=== PATIENT | female | born 1960 | race Caucasian/White ===

== ENCOUNTER 2018-09-28 18:21 | Observation (INO) ==
--- NOTE | 2018-09-28 19:30 | ED ---
HPI General Chief Complaint: Chest Pain Stated Complaint: Chest Pain Time Seen by Provider: 09/28/18 19:21 Source: patient Mode of arrival: ambulatory Limitations: no limitations History of Present Illness HPI narrative: Patient is a 58-year-old female who just was seen in the emergency room for COPD patient as well as for chest pain, she left AGAINST MEDICAL ADVICE as she did not want to be admitted overnight to the chest pain unit. At that time, patient reports that she has been having chest pain for the past 4 days which is intermittent in nature. Patient reports that chest pain would wake her up from sleep and will go from her chest and radiated to her jaw. Symptoms last about 10 minutes at a time resolved on its own. Patient was seen in the emergency room, she had 2 sets of cardiac enzymes which were negative and left AGAINST MEDICAL ADVICE. Patient reports that she went home and began to have chest pain. Patient reports that chest pain was substernal in nature, reports that it felt like a pressure to her chest. Patient reports that she did feel diaphoretic and shortness of breath with the symptoms. Patient reports the symptoms last for about 45 minutes and has resolved on its own. Patient was concerned about her cardiac history as she does have history of hypertension, lupus, fibromyalgia, COPD, she now is willing to be admitted to the hospital for cardiac observation. Patient is currently chest pain-free at this time. Related Data Home Medications Medication Instructions Recorded Confirmed acetaminophen 650 mg PO Q6H PRN 09/28/18 09/28/18 ergocalciferol (vitamin D2) 50,000 unit PO QWEEK 09/28/18 09/28/18 [Vitamin D2] hydroxychloroquine 200 mg PO BID 09/28/18 09/28/18 propranolol 120 mg PO DAILY 09/28/18 09/28/18 Previous Rx's Medication Instructions Recorded albuterol sulfate 2 inh INHALATION Q6-8H PRN #18 g 09/28/18 amoxicillin-pot clavulanate 1 tab PO Q12H #14 tab 09/28/18 [Augmentin] prednisone 20 mg PO BID 5 Days #10 tab 09/28/18 Allergies Allergy/AdvReac Type Severity Reaction Status Date / Time erythromycin base Allergy Severe N/V Verified 09/28/18 18:46 Sulfa (Sulfonamide Allergy Unknown UNKNOWN Verified 09/28/18 18:46 Antibiotics) Review of Systems ROS: all other systems reviewed are negative [facility] History History Provided By: Patient Medical History Medical History COPD (chronic obstructive pulmonary disease) (Acute) Fibromyalgia (Acute) HTN (hypertension) with goal to be determined (Acute) Lupus (Acute) Raynaud disease (Acute) Surgical History Surgical History History of skin surgery (Acute) Hx of cholecystectomy (Acute) Social History Social History Substance History: No History of Abuse Second Hand Smoke Exposure: Yes Smoking Status: Current every day smoker Tobacco Type: Cigarettes Cigarettes Per Day: 13 How Often Do You Have a Drink Containing Alcohol: Monthly or less Recent Travel in [facility] within the Last 8 Weeks: No Recent Out of Country Travel within the Last 8 Weeks: No Exam Narrative Exam Narrative: GENERAL: NAD SKIN: Focused skin assessment warm/dry. HEAD: Atraumatic. Normocephalic. EYES: Pupils equal and round. No scleral icterus. No injection or drainage. ENT: No nasal bleeding or discharge. Mucous membranes pink and moist. NECK: Trachea midline. No JVD. CARDIOVASCULAR: Regular rate and rhythm. No murmur appreciated. RESPIRATORY: No accessory muscle use. Clear to auscultation. Breath sounds equal bilaterally. GASTROINTESTINAL: Abdomen soft, non-tender, nondistended. Hepatic and splenic margins not palpable. MUSCULOSKELETAL: No obvious deformities. No clubbing. No cyanosis. No edema. NEUROLOGICAL: Awake and alert. No obvious cranial nerve deficits. Motor grossly within normal limits. Normal speech. PSYCHIATRIC: Appropriate mood and affect; insight and judgment normal. Course Initial Documented Vital Signs Temperature 98.5 F 09/28/18 18:43 Pulse Rate 74 09/28/18 18:43 Respiratory Rate 16 09/28/18 18:43 Blood Pressure 143/88 H 09/28/18 18:43 Pulse Oximetry 96 09/28/18 18:43 Last Documented Vital Signs Temperature 98.5 F 09/28/18 18:43 Pulse Rate 74 09/28/18 18:43 Respiratory Rate 16 09/28/18 18:43 Blood Pressure 143/88 H 09/28/18 18:43 Pulse Oximetry 96 09/28/18 18:43 Medical Decision Making MDM Narrative Medical decision making narrative: During the course of the patients emergency department visit, the patients history, examination, and differential diagnosis were reviewed with the patient. The patient was placed on a child monitor with oximetry and frequent blood pressure monitoring. The patient had an IV access obtained and blood work sent for analysis. The patient was initially provided with aspirin on her recent ER visit, please refer to previous ER note and medication administration. Her EKG from [address]-T wave changes, there is no previous EKGs. Her EKG currently shows normal sinus rhythm at 60 bpm, there is some minimal ST segment depressions lateral leads. Plan to admit to the hospital to the chest pain unit for observation. case reviewed with Dr. Abdi who accepts pt to service Medical Screen Exam Complete: Yes Emergency Medical Condition: Yes Differential Diagnosis Differential Diagnosis: ACS, arrhythmia, unstable angina ECG Data EKG Prior to Arrival: Yes Attestation: I personally reviewed and interpreted this ECG as follows: Interpretation: EKG at 1911 shows normal sinus rhythm at 68 bpm, QT/QTc 378/396 , there is minimal ST segment depressions Discharge Plan Discharge Disposition Patient Disposition: ED Admit(ED Internal Use Only) Discharge Condition Condition: Stable Discharge Details Diagnosis: Chest pain Physicians Team ED Provider: Keara Fuchs Primary Care Provider: Primary Care Amanda Herndon Rxs /Orders / Referrals /Forms Prescriptions: No Action acetaminophen 325 mg Tablet 650 mg PO Q6H PRN (Reason: Pain) RF: 0 ergocalciferol (vitamin D2) [Vitamin D2] 50,000 unit Capsule 50,000 unit PO QWEEK RF: 0 hydroxychloroquine 200 mg Tablet 200 mg PO BID RF: 0 propranolol 120 mg Capsule,Extended Release 24hr 120 mg PO DAILY RF: 0 prednisone 20 mg tablet 20 mg PO BID 5 Days Qty: 10 RF: 0 albuterol sulfate 90 mcg/actuation HFA aerosol inhaler 2 inh INHALATION Q6-8H PRN (Reason: shortness of breath or wheezing) Qty: 18 RF: 0 amoxicillin-pot clavulanate [Augmentin] 875-125 mg tablet 1 tab PO Q12H Qty: 14 RF: 0 Discharge Instructions Patient Printed Instructions: Chest Pain (ED) Status ED Status: With Doctor
[2018-09-28] MEDS ORDERED: Acetaminophen 325 MG Tablet PO ONE (19:37)
[2018-09-28 21:00] LABS: Creatine Kinase 69 U/L (26-192)
--- NOTE | 2018-09-28 22:04 | ECG ---
Date Performed: 09/28/2018 Time Performed: 19:11:34 PTAGE: 58 years EKG: Sinus rhythm MINIMAL ST DEPRESSION BORDERLINE ECG PREVIOUS TRACING : 09/28/2018 12.11 Since the previous tracing, no significant change noted DOCTOR: Konstantin Valentine Interpretating Date/Time 09/28/2018 22:03:01
[2018-09-29] MEDS: Heparin - SQ 10,000 UNITS/ML Vial SQ SCH ×3 (00:16→18:47)
[2018-09-29] MEDS: Morphine Inj 4 MG/ML Vial IV.PUSH PRN ×3 (00:42→14:54)
[2018-09-29 01:08] LABS: Creatine Kinase 79 U/L (26-192)
[2018-09-29 05:31] LABS: Creatine Kinase 53 U/L (26-192)
[2018-09-29] MEDS: Aspirin 325 MG Tablet PO SCH (08:25)
--- NOTE | 2018-09-29 13:03 | P.HPIM ---
History of Present Illness Primary Care Physician: No Primary Care Physician History of Present Illness: 58-year-old female with a history of lupus, fibromyalgia, hypertension, COPD, chronic smoking who presents with a 3-day history of intermittent sharp chest pain radiating to bilateral jaws, left arm. She notes that this pain usually wakes her from sleep, however has experiences during the day as well. She denies any fevers, chills. She also reports sinus congestion over the past few days. She is from [place] and is visiting family. He says her , who is still up in [place], was diagnosed with metastatic lung cancer the day before [place]. Patient says she has been very upset by this, has been grinding her teeth. She is not sure if her chest pain is stress related or not. Patient is currently chest pain-free. She reports that the pain is not worsened with deep breathing. Of note, she did visit the ER several days ago, was admitted to chest pain center with 2- troponins and discharged AMA. Review of Systems All other systems reviewed negative except as stated in HPI PMFSH - History History Provided By: Patient - Medical History Medical History: Medical History (Last Reviewed 09/28/18 @ 20:24 by Alexa Vides RN) COPD (chronic obstructive pulmonary disease) Fibromyalgia HTN (hypertension) with goal to be determined Lupus Raynaud disease - Surgical History Surgical History: Surgical History (Last Reviewed 09/28/18 @ 20:24 by Alexa Vides RN) History of skin surgery Hx of cholecystectomy - Tobacco History Second Hand Smoke Exposure: Yes Tobacco Use In Past 30 Days: Yes Smoking Status: Current every day smoker Tobacco Type: Cigarettes Cigarettes Per Day: 13 - Alcohol History How Often Do You Have a Drink Containing Alcohol: Never - Substance Use History Substance History: No History of Abuse - Travel History Recent Travel in the [place] Within the Last 8 Weeks: No Recent Travel Out of the Country Within the Last 8 Weeks: No - Immunization History Tetanus Immunization: >5 Years Medications and Allergies Active Medications: Active Medications Acetaminophen (Tylenol) 500 mg PO Q4H PRN PRN Reason: HEADACHE Hydrocodone Bitart/Acetaminophen (Emmaus 7.5/325) 1 tab PO Q4H PRN PRN Reason: PAIN SCALE 1 TO 7 Aspirin (Aspirin) 325 mg PO DAILY [facility] Last Admin: 09/29/18 08:25 Dose: 325 mg Heparin Sodium (Porcine) (Heparin Inj) 5,000 units SQ Q8H [facility] Last Admin: 09/29/18 08:25 Dose: 5,000 units Morphine Sulfate (Morphine Inj) 2 mg IV.PUSH Q4H PRN PRN Reason: PAIN SCALE 8 TO 10 Last Admin: 09/29/18 10:11 Dose: 2 mg Nitroglycerin (Nitrostat Sl) 0.4 mg SL Q5M PRN PRN Reason: CHEST PAIN Ondansetron HCl (Zofran Inj) 4 mg IV.PUSH Q6H PRN PRN Reason: NAUSEA Last Admin: 09/29/18 00:42 Dose: 4 mg Sodium Chloride (Ns Flush) 2 ml IV.FLUSH BID [facility] Last Admin: 09/29/18 08:26 Dose: 2 ml Sodium Chloride (Ns Flush) 2 ml IV.FLUSH PRN PRN PRN Reason: FLUSH AFTER USING IV ACCESS Allergies Allergy/AdvReac Type Severity Reaction Status Date / Time erythromycin base Allergy Severe N/V Verified 09/28/18 18:46 Sulfa (Sulfonamide Allergy Unknown UNKNOWN Verified 09/28/18 18:46 Antibiotics) Home Medications Medication Instructions Recorded Confirmed Type acetaminophen 650 mg PO Q6H PRN 09/28/18 09/28/18 History alprazolam 0.5 mg PO DIRECTED PRN 09/28/18 09/28/18 History ergocalciferol (vitamin D2) 50,000 unit PO QWEEK 09/28/18 09/28/18 History [Vitamin D2] hydroxychloroquine 200 mg PO BID 09/28/18 09/28/18 History propranolol 120 mg PO DAILY 09/28/18 09/28/18 History Exam Vital signs: Vital Signs 09/28/18 18:43 09/28/18 20:18 09/28/18 20:33 Temperature 98.5 F Pulse Rate 74 64 Respiratory Rate 16 18 18 Blood Pressure 143/88 H 112/76 Pulse Oximetry 96 95 09/28/18 22:18 09/28/18 22:30 09/29/18 04:00 Temperature 98.1 F 95.0 F L 96.3 F L Pulse Rate 62 59 L 68 Respiratory Rate 18 20 20 Blood Pressure 142/90 H 153/81 H 112/77 Pulse Oximetry 95 97 97 09/29/18 08:00 09/29/18 10:32 09/29/18 10:53 Temperature 96.8 F L 96.5 F L Pulse Rate 59 L 57 L Respiratory Rate 16 16 20 Blood Pressure 109/72 127/76 Pulse Oximetry 96 96 Intake & Output 09/28/18 09/29/18 09/29/18 18:59 06:59 18:59 Intake Total 0 / 0 Balance 0 / 0 Weight 59.8 kg 61.3 kg Intake: Oral 0 / 0 Other: # Voids 3 Weight On Admission 61.1 kg Narrative: GENERAL: Patient sitting up in bed. Appears comfortable. Appears anxious however. Alert and oriented x3. SKIN: Warm and dry. Patient does have a erythematous rash on her face which she says is not unusual for her. HEAD: Atraumatic. Normocephalic. EYES: Pupils equal and round. No scleral icterus. No injection or drainage. ENT: No nasal bleeding or discharge. Mucous membranes pink and moist. NECK: Trachea midline. No JVD. No TMJ tenderness. CARDIOVASCULAR: Regular rate and rhythm. RESPIRATORY: No accessory muscle use. Clear to auscultation. Breath sounds equal bilaterally. GASTROINTESTINAL: Abdomen soft, non-tender, nondistended. Hepatic and splenic margins not palpable. MUSCULOSKELETAL: Extremities without clubbing, cyanosis, or edema. No obvious deformities. NEUROLOGICAL: Awake and alert. No obvious cranial nerve deficits. Motor grossly within normal limits. Five out of 5 muscle strength in the arms and legs. Normal speech. PSYCHIATRIC: Appropriate mood and affect; insight and judgment normal. Results - Labs Labs: Cardiac Enzymes 09/28/18 09/28/18 09/29/18 Range/Units 19:20 23:20 04:32 Total Creatine Kinase 69 79 53 (26-192) U/L Troponin I Less than 0.02 L Less than 0.02 L Less than 0.02 L (0.02-0.05) ng/mL Caprini VTE Risk Assessment Caprini VTE Risk Assessment: No/Low Risk (score <= 1) Caprini Risk Assessment Model: Point Value = 1 Point Value = 2 Point Value = 3 Point Value = 5 Age 41-60 Minor surgery BMI > 25 kg/m2 Swollen legs Varicose veins or History of unexplained or recurrent spontaneous Oral contraceptives or hormone replacement Sepsis (< 1 month) Serious lung disease, including pneumonia (< 1 month) Abnormal pulmonary function Acute myocardial infarction Congestive heart failure (< 1 month) History of inflammatory bowel disease Medical patient at bed rest Age 61-74 Arthroscopic surgery Major open surgery (> 45 min) Laparoscopic surgery (> 45 min) Malignancy Confined to bed (> 72 hours) Immobilizing plaster cast Central venous access Age >= 75 History of VTE Family history of VTE Factor V Leiden Prothrombin [id number] Lupus anticoagulant Anticardiolipin antibodies Elevated serum homocysteine Heparin-induced thrombocytopenia Other congenital or acquired thrombophilia Stroke (< 1 month) Elective arthroplasty Hip, pelvis, or leg fracture Acute spinal cord injury (< 1 month) Prophylaxis Regimen: Total Risk Factor Score Risk Level Prophylaxis Regimen 0-1 Low Early ambulation 2 Moderate Order ONE of the following: *Sequential Compression Device (SCD) *Heparin 5000 units SQ BID 3-4 Higher Order ONE of the following medications: *Heparin 5000 units SQ TID *Enoxaparin/Lovenox 40 mg SQ daily (WT < 150 kg, CrCl > 30 mL/min) *Enoxaparin/Lovenox 30 mg SQ daily (WT < 150 kg, CrCl > 10-29 mL/min) *Enoxaparin/Lovenox 30 mg SQ BID (WT < 150 kg, CrCl > 30 mL/min) AND/OR *Sequential Compression Device (SCD) 5 or more Highest Order ONE of the following medications: *Heparin 5000 units SQ TID (Preferred with Epidurals) *Enoxaparin/Lovenox 40 mg SQ daily (WT < 150 kg, CrCl > 30 mL/min) *Enoxaparin/Lovenox 30 mg SQ daily (WT < 150 kg, CrCl > 10-29 mL/min) *Enoxaparin/Lovenox 30 mg SQ BID (WT < 150 kg, CrCl > 30 mL/min) AND *Sequential Compression Device (SCD) Assessment and Plan - Plan //Acute atypical chest pain -EKG with some ST depression, likely left ventricular hypertrophy. Troponins negative. -Nonpleuritic -Could be stress-induced cardiomyopathy secondary to 's recent diagnosis of metastatic cancer. -Patient has been recently started on steroids for upper respiratory infection, could be exacerbating stress. -We will check echocardiogram, Lexiscan. Follow-up results. //Recent upper respiratory infection No signs of acute infection currently. //History of COPD Patient says she is without inhalers here currently. Will order as needed. //Chronic illnesses including lupus, Raynaud's. Continue medication Discussed Condition With: Patient, nurse H&P: Quality - VTE Deep Vein Thrombosis/Pulmonary Embolism Present on Admission: No
[2018-09-29] MEDS ORDERED: Regadenoson Inj 0.4 MG/5 ML Syringe IV.PUSH ONE (14:03)
--- NOTE | 2018-09-29 15:09 | NM ---
EXAM DATE: 09/29/2018 2:58 PM EST AGE/SEX: 58 years / Female INDICATIONS:Angina. . Chest pain radiating to left arm and jaw. CLINICAL DATA: This is the patient's initial encounter. Patient reports that signs and symptoms have been present for 1 day and indicates a pain score of 3/10. MEDICAL/SURGICAL HISTORY: Chronic obstructive pulmonary disease. Hypertension. Lupus. Fibrom yalgia. Cholecystectomy. COMPARISON: No prior exams available for comparison. DOSE: 8.8 mCi Tc 99m Myoview at rest 26.3 mCi [id number] at stress 0.4 mg Lexiscan STRESS SYMPTOMS: Chest tightness, dyspnea, and burning in chest. EJECTION FRACTION: 51 % TECHNIQUE: The patient underwent pharmacologic stress with infusion of prescribed dose. Continuous ECG tracing was monitored during stress. Gated SPECT imaging was performed after stress and conventi onal SPECT imaging was performed at rest. The examination was performed on a SPECT/CT scanner, both attenuation and non-corrected datasets were reviewed. FINDINGS: Distribution: The maximum perfused segment at stress is in the inferior wall. Perfusion Study: A large partially reversible stressed induced perfusion abnormality is identified throughout the left ventricle with sparing of the bases. There is incomplete reperfusion in the apex of the heart. Gated Study: Significant hypokinesia is identified associated with the large perfusion abnormality. The ejection fraction is calculated at 51% but appears to be overestimated. RISK CATEGORY: High (>3% Annual Mortality Rate) CONCLUSION: 1. Large partially reversible stress-induced perfusion abnormality with associated significant hypok inesia. 2. Over calculated ejection fraction which appears to be less than 50%. Electronically signed by: Erwin Mazariegos MD Board Certified Radiologist 09/29/2018 3:07 PM EST
[2018-09-29] MEDS ORDERED: Heparin Drip 25,000 UNIT/250 ML BAG IV.CONT PRN (16:52)
[2018-09-29] MEDS ORDERED: fentaNYL Citrate Inj 100 MCG/2 ML Ampul IV.PUSH SCH (17:00)
--- NOTE | 2018-09-29 17:10 | MB ---
cc: Antonio Wynn MD DATE: 09/29/2018 REASON FOR CONSULTATION: Abnormal nuclear stress test, chest pain. HISTORY OF PRESENT ILLNESS: The patient is a 58-year-old white female, visiting here from [place], with a history of hypertension, hyperlipidemia, tobacco abuse, COPD, fibromyalgia, lupus, who presented to the hospital with complaints of chest discomfort and shortness of breath. For the past 6 days, she has had intermittent episodes of right parasternal and substernal chest discomfort described as a "raw feeling." Some episodes have lasted up to 30-40 minutes and had been associated with shortness of breath and nausea. The patient denies pleurisy, dizziness, syncope, near syncope, palpitations, pedal edema, paroxysmal nocturnal dyspnea. PAST MEDICAL HISTORY: 1. COPD. 2. Fibromyalgia. 3. Hyperlipidemia. 4. Hypertension. 5. Lupus. PAST SURGICAL HISTORY: 1. Skin surgery. 2. Cholecystectomy. CARDIAC MEDICATIONS AT HOME: Propranolol 120 mg daily. ALLERGIES: ERYTHROMYCIN, SULFA. FAMILY HISTORY: The patient's brother has sustained a number of myocardial infarctions in his 40s and underwent bypass surgery at approximately age 42. SOCIAL HISTORY: The patient smokes about 10 cigarettes per day. She denies alcohol abuse. REVIEW OF SYSTEMS: As in the history of present illness, otherwise negative or noncontributory. She also denies abdominal pain, melena, dyspepsia, bright red blood per rectum. Chronically, she has mild headaches for which she uses Tylenol with relief. PHYSICAL EXAMINATION: VITAL SIGNS: Her blood pressure is 115/80 with a pulse of 74, respirations 18. GENERAL: She is a well-developed, well-nourished white female in no acute distress. NECK: Jugular venous pressure is normal. Carotid pulses are 2+ bilaterally and without bruits. CHEST: Reveals clear lungs flynn. CARDIAC: She has a regular rhythm and rate without S3, S4, or murmur. ABDOMEN: She has a soft, nontender abdomen. Bowel sounds are present. There is no definite hepatosplenomegaly. EXTREMITIES: Reveals no clubbing, cyanosis or edema. LABORATORY DATA: Includes normal CBC, normal INR, normal basic metabolic profile, negative cardiac enzymes. EKG shows sinus rhythm, anterior T-wave inversion, consider ischemia. IMPRESSION: Symptoms most suggestive of unstable angina, abnormal nuclear stress test reportedly showing significant ischemia in this 58-year-old white female with a history of COPD, hypertension, hyperlipidemia, lupus. Her nuclear stress test images have been reviewed. I would agree there is a significant amount of moderate to severe mid to distal anterior and apical ischemia. She also has an EKG suggesting anterior ischemia with T-wave inversion in the anterior leads. She does have a number of risk factors for coronary artery disease including family history, tobacco abuse, hypertension, hyperlipidemia. Because of the high risk nature of her nuclear stress test findings and because of the instability of her symptoms, she has been recommended cardiac catheterization with possible percutaneous coronary intervention. The nature of these procedures and potential risks including, but not limited to , myocardial infarction, stroke, arrhythmia, bleeding, infection, and renal failure have been outlined to the patient. She agrees to proceed. RECOMMENDATIONS: 1. Continue daily aspirin and her usual beta bryce. 2. Transfer to the main hospital for cardiac catheterization tomorrow morning. 3. Add an CAYLA inhibitor and statin. 4. Change the subcutaneous heparin to heparin drip. MD SABRINA Collins/fer , 04:48 PM , 04:55 PM [email or web address]
[2018-09-29 18:52] LABS: Amphetamine Screen,Urine Neg (Neg); Barbiturate Screen,Urine Neg (Neg); Cannabinoid Screen,Urine Neg (Neg)
[2018-09-29 18:53] LABS: Cocaine Screen,Urine Neg (Neg)
[2018-09-29 19:04] LABS: Hematocrit 43.9 % (35.0-46.0); Hemoglobin 14.9 gm/dL (11.6-15.3); Mean Corpuscular Hemoglobin 30.6 pg (27.0-34.0); Mean Platelet Volume 8.6 fL (7.0-11.0); Platelet Count 217 th/mm3 (150-450); Red Blood Count 4.88 mil/mm3 (4.00-5.30); White Blood Count 10.1 th/mm3 (4.0-11.0)
[2018-09-29 19:15] LABS: Opiate Screen,Urine Pos (Neg)
--- NOTE | 2018-09-29 23:03 | ECG ---
Date Performed: 09/29/2018 Time Performed: 15:01:41 PTAGE: 58 years EKG: Sinus rhythm MODERATE T-WAVE ABNORMALITY, CONSIDER ANTERIOR ISCHEMIA ABNORMAL ECG PREVIOUS TRACING : 09/29/2018 02.15 Compared to previous tracing, anterior T wave inversion is now more prominent. DOCTOR: Antonio Wynn Interpretating Date/Time 09/29/2018 23:02:38
[2018-09-29] MEDS ORDERED: ALPRAZolam 0.25 MG Tablet PO ONE (23:10)
--- NOTE | 2018-09-29 23:37 | ECG ---
Date Performed: 09/28/2018 Time Performed: 23:34:26 PTAGE: 58 years EKG: Sinus rhythm NONSPECIFIC ST-T ABNORMALITIES PREVIOUS TRACING : 09/28/2018 19.11 Since the previous tracing, no significant change not ed DOCTOR: Konstantin Valentine Interpretating Date/Time 09/29/2018 23:35:07
--- NOTE | 2018-09-29 23:37 | ECG ---
Date Performed: 09/29/2018 Time Performed: 02:15:44 PTAGE: 58 years EKG: Sinus rhythm MODERATE ST DEPRESSION ABNORMAL ECG PREVIOUS TRACING : 09/28/2018 23.34 Since the previous tracing, no significant change noted DOCTOR: Konstantin Valentine Interpretating Date/Time 09/29/2018 23:34:33
[2018-09-30] MEDS ORDERED: Sod Chloride 0.9% Inj 1,000 ML IV.CONT SCH (02:30)
[2018-09-30] MEDS ORDERED: Heparin/NS PF Inj 1,500 ML ONE (07:11)
[2018-09-30] MEDS ORDERED: Heparin 10,000 UNITS/10 ML Vial (for IV use) ONE (07:12)
[2018-09-30] MEDS ORDERED: fentaNYL Citrate Inj 100 MCG/2 ML Ampul ONE (07:12)
[2018-09-30] MEDS ORDERED: Tirofiban Inj 12,500 MCG/250 ML PLAST..BAG ONE (07:28)
[2018-09-30] MEDS ORDERED: Iohexol 350 MG/ML 100 ML Vial (for Cath Lab) IVCONTRAST ONE (07:30)
[2018-09-30] MEDS ORDERED: Iohexol 350 MG/ML 50 ML Vial (for Cath Lab) IVCONTRAST ONE (07:30)
[2018-09-30] MEDS ORDERED: Misc Info for Pharmacy OTHER STA (07:58)
--- NOTE | 2018-09-30 07:59 | CATHPROC ---
[employer] HIS Report Study Information Study Number Admission Scheduled Start Study Start [id number] Sep 28 2018 7:50PM 09/30/2018 Sep 30 2018 6:54AM Martha Service Cardiac Catheterization Admit Source Facility Department Emergency department [facility] - [facility] [employer] Physician and Clinical Staff Initial Antonio Babin Civil Manager Ross Mittal,RN Recorder Diana Miller ,RT(R) Scrub Val Allen,RT(R) Procedures Performed Procedure Location (Site) Vessel Name Coronary Angiograms LCA Left Coronary Coronary Angiograms RCA Right Coronary Drug Eluting Inflatio LAD Mid Left Coronary L Heart Cath LV Gram-hand inj. 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 Description Size Mfg Part Number Used/Scraped [id number] 07:34 [employer] WIRE, ASAHI PROWATER 180CM 180CM Used *[id number] TRANSDUCER, TRUWAVE [id number] 06:59 PATEL HOWELL * Used W/STOCKCOCK *[id number] *[id number] 06:59 MALLINCKRODT SYRINGE, ANGIOMAT 150ML 150ML *[id number] Used 2SUB MEDICAL CONCEPT DRAPE, RADIAL FEMORAL FULL 06:59 * [id number] *[id number] Used DEVELOPMENT BODY [id number] 06:59 [employer] BLANKET,WARM AIR CCL * Used *[id number] 06:59 [employer] PACK, CCL CUSTOM * Used *[id number] 06:59 [employer] SUPPORT, ARTERIAL ADULT [id number] *[id number] Used [id number] 06:59 [employer] PACER PEN, SKIN DUAL W/ RULER * Used *[id number] 07:38 [employer] BALLOON, 2.5 X 15MM EUPHORA 15MM Used *[id number] 07:42 [employer] STENT, 2.75 18MM HUMERA 2.75 18MM Used *[id number] 07:35 [employer] 30 JUAN MANUEL INDEFLATOR Used *[id number] BAND, RADIAL COMPRESSION TR [id number] 07:49 [employer] 24CM Used SHORT 24 *[id number] SHEATH, FR6 RADIAL PRELUDE 06:59 [employer] FR 6 [id number] Used EASE 11CM [id number] 06:59 [employer] WIRE, EXCHANGE 260CM 3MMJ 260CM Used *[id number] 06:59 [employer]IC MANIFOLD, 4 PORT * Used *[id number] 06:59 [employer] OMNIPAQUE, 350 MG, 150ML 150ML [id number] Used CATHETER, FR5 OPTITORQUE [id number] 07:27 [employer] FR 5 Used RADIAL TIG 4.5 *[id number] Equipment Model, Serial, Lot Number and Expiration Data Description Model Number Serial Number Lot Number Expiration Date STENT, 2.75 18MM HUMERA [id number] 10-30-2019 History: Current Medications Medication Dosage/Unit Route Frequency Last Date/Time Taken Statins (any) ASA History: Allergies Allergy Reaction Sulfa (Sulfonamide Antibiotics) UNKNOWN erythromycin base N/V History: Risk Factors Family History of Hypertension Dyslipidemia Previous SC Previous Heart Failure Premature CAD Yes Yes Yes No No Prior Valve Prior PCI Prior CABG Surgery No No No Cerebrovascular Peripheral Artery Chronic Lung On Dialysis Diabetes Disease Disease Disease No No No Yes No History: Stress Tests Stress or Imaging Studies Performed Yes Standard Exercise Stress Test No Stress Echo No Stress Test CMR No Cardiac CTA Coronary Calcium Score No No History: Other Current Smoker Method Packs a Day Years Used Pack Years Yes Cigarettes 1 42 42 Labs Hgb (g/dl) Hct (%) WBC (l/cumm) Platelets (thousands) 11.60-17.00 35.00-51.00 4.00-11.00 150.00-450.00 14.9 43.9 10.1 217 Glucose (mg/dl) BUN (mg/dl) Creatinine (mg/dl) BUN:Creatinine (1:x) 74.00-106.00 7.00-18.00 0.50-1.30 10.00-20.00 99 12 0.5 24 Na (meq/l) K (meq/l) 136.00-145.00 3.50-5.10 135 3.9 Troponin I (ng/ml) CPK-MB (ng/ML) 0.02-0.05 0.50-3.60 0.02 Not Drawn Medication Medication Total Dose (Bolus/Oral) Medication Total Dosage/Unit 1% XYLOCAINE 5 mL AGGRASTAT BOLUS 31.5 mL FENTANYL 50 mcg NTG (IC) 250 mcg PLAVIX 600 mg VERSED 4 mg Medications (Bolus/Oral) Medication Time Given Dosage/Unit Administered By Reason 1% XYLOCAINE 09/30/2018 7:24:02 AM 5 mL Antonio Wynn 5 mL 1% XYLOCAINE given in lab by Antonio Wynn via Subcutaneous. Ordered by Antonio Wynn. VERSED 09/30/2018 7:24:15 AM 2 mg Daxa, Ross 2 mg VERSED given in lab by Ross Mittal RN via Peripheral IV. Ordered by Antonio Wynn. FENTANYL 09/30/2018 7:25:20 AM 50 mcg Daxa, Ross 50 mcg FENTANYL given in lab by Ross Mittal RN via Peripheral IV. Ordered by Antonio Wynn. AGGRASTAT BOLUS 09/30/2018 7:34:24 AM 31.5 mL Daxa, Ross 31.5 mL AGGRASTAT BOLUS given in lab by Ross Mittal RN via Peripheral IV. Ordered by Antonio Wynn. VERSED 09/30/2018 7:40:16 AM 2 mg Daxa, Ross 2 mg VERSED given in lab by Ross Mittal RN via Peripheral IV. Ordered by Antonio Wynn. NTG (IC) 09/30/2018 7:41:21 AM 150 mcg Antonio Wynn 150 mcg NTG (IC) given in lab by Antonio Wynn via Intra-coronary. Ordered by Antonio Wynn. NTG (IC) 09/30/2018 7:45:13 AM 100 mcg Antonio Wynn 100 mcg NTG (IC) given in lab by Antonio Wynn via Intra-coronary. Ordered by Antonio Wynn. PLAVIX 09/30/2018 7:54:40 AM 600 mg Daxa, Ross 600 mg PLAVIX given in lab by Ross Mittal RN via Oral. Ordered by Antonio Wynn. Medication (Drip) Medication Time Given Dosage/Unit Concentration/Unit Diluent (ml) Solution AGGRASTAT DRIP 09/30/2018 7:37:03 AM 0.15 mcg/kg/min 12.5 mg 250 NaCl .9 0.15 mcg/kg/min AGGRASTAT DRIP given in lab by Ross Mittal RN via Peripheral IV. Pump/Drip Flow = 1 1.3 ml/hr using NaCl .9 with a concentration of 12.5 mg in 250 ml. Ordered by Antonio Wynn. IV Solutions 09/30/2018 6:57:47 AM 50 mL (IV) NaCl .9 Patient arrived on IV Solutions via Peripheral IV. Pump/Drip Flow using NaCl .9. Initial Case Assessment Cardiovascular HR NIBP Chest Pain 64 138/86 1 Edema Present Skin color Skin None Normal Warm Dry Circulatory - Right Pulses Dorsalis Pedis Femoral Radial 3 3 3 Scale (0,1,2,3,4,d) Scale (0,1,2,3,4,d) Circulatory - Lower Extremities Color Lower Right Color Lower Left Normal Normal Neurological State Oriented to time-place- Alert Moves all extremities person Respiration - General Respiration Rate SpO2 (%) (B/min) 15 96 Final Case Assessment Cardiovascular HR NIBP Chest Pain 64 128/81 1 Edema Present Skin color Skin None Normal Warm Dry Circulatory - Right Pulses Dorsalis Pedis Femoral Radial 3 3 3 Scale (0,1,2,3,4,d) Scale (0,1,2,3,4,d) Circulatory - Lower Extremities Color Lower Right Color Lower Left Normal Normal Neurological State Oriented to time-place- Alert Moves all extremities person Respiration - General Respiration Rate SpO2 (%) (B/min) 15 96 Chronological Log Time Study Chronological Log 6:57:23 Patient arrived via Bed. 6:57:25 Patient Name, D.O.B, / Armband Verified By R.N. 6:57:25 Consent signed by the physician and the patient and verified by the [employer] [employer] staff. 6:57:26 Pre-op and post- op instructions given; patient acknowledges understanding of instructions. 6:57:31 Presedation assessment performed by [employer] RN. 6:57:34 Allens test performed on the right radial and ulnar artery. positive 6:57:36 Patient has been NPO for More than 6Hrs. 6:57:37 Skin Breakdown- none per patient 6:57:40 Patient Warmer Placed on the Table. 6:57:43 Yvette Prominences Protected 6:57:46 A # 20 IV was noted in the Antecubital (right). Grade = 0 6:57:47 Patient arrived on IV Solutions via Peripheral IV. Pump/Drip Flow using NaCl .9. 6:57:48 History and physical on the chart or being dictated. Assessment: Initial Case, HR=64 BPM, WLCA=781/86 mmhg, Chest Pain=1, Edema=None, Color=Normal, Skin = Warm, Dry Right Pulses: Nav Ped=3, Femoral=3, Radial=3 6:58:04 Lower Right Extremities: Color=Normal Lower Left Extremities: Color=Normal Neurological: State=Alert, Ox3, CARDONA Respiration: Resp=15 B/min, SpO2=96 % Vitals capture started with the following parameters, Patient=Adult, Interval=5 min, Initial Pre otadt=157 mmHg, 7:09:14 Deflation Rate=5 mmHg, Cuff placed on Right Arm 7:09:51 HR=63 bpm, XZME=718/86 mmhg, SpO2=96.0 %, Resp=11 B/min, Pain=0, Arianna=10, Hale=2 7:12:38 Right Radial and groin(s) prepped with 2% chlorhexidine, and draped after a 3 min. waiting t maria. 7:14:54 HR=74 bpm, GDVW=543/68 mmhg, SpO2=95.0 %, Resp=16 B/min 7:18:14 Pressure channel 1 zeroed. 7:18:26 MD paged 7:18:38 MD responded 7:19:07 Reference ECG taken 7:20:19 MD arrived. 7:20:24 HR=68 bpm, WSFK=526/89 mmhg, SpO2=93.0 %, Resp=16 B/min Time Out. Correct patient, correct procedure, correct physician, labs, allergies, and equipment verified with garage laborer 7:23:27 team present. Fire risk assesment completed (see hard stop sheet for coding). Time Out Concu rred by MD and individual staff in procedure. 7:24:01 Case Start 7:24:02 5 mL 1% XYLOCAINE given in lab by Antonio Wynn via Subcutaneous. Ordered by Antonio Wynn. 7:24:15 2 mg VERSED given in lab by Ross Mittal, RN via Peripheral IV. Ordered by Antonio Wynn. 7:25:20 50 mcg FENTANYL given in lab by Ross Mittal, RN via Peripheral IV. Ordered by Antonio Wynn. 7:25:31 HR=71 bpm, OSRO=545/88 mmhg, SpO2=96.0 %, Resp=13 B/min, Pain=0, Arianna=10, Hale=2 7:25:36 Access site was Right Radial Artery . A SHEATH, FR6 RADIAL PRELUDE EASE 11CM FR 6 was advanced into the Radial (right) using the Grady chavira 7:25:45 technique. A CATHETER, FR5 OPTITORQUE RADIAL TIG 4.5 FR 5 was advanced over a wire. OMNIPAQUE, 350 MG, 150M L 150ML 7:26:08 was used for injections. 7:27:39 The LCA was injected and visualized at various angles. OMNIPAQUE, 350 MG, 150ML 150ML used. 7:28:58 The RCA was injected and visualized at various angles. OMNIPAQUE, 350 MG, 150ML 150ML used. Recorded Pressure: Ao, BR=440, Condition=Condition 1 7:29:15 (Aorta) Ao 105/71/87 7:29:51 HR=46 bpm, NYLD=529/73 mmhg, SpO2=87.0 %, Resp=10 B/min After removing the current catheter a CATHETER, FR5 OPTITORQUE RADIAL TIG 4.5 FR 5 was advanced over a WIRE, 7:30:01 EXCHANGE 260CM 3MMJ 260CM. Recorded Pressure: LV, HR=95, Condition=Condition 1 7:30:30 (Left Ventricle) LV 113/-2/3 7:30:36 The LV was manually injected with 10 cc's and visualized. OMNIPAQUE, 350 MG, 150ML 150ML use d. Recorded Pressure: LV, Ao, HR=89, Condition=Condition 1 7:30:45 (Left Ventricle) LV 121/-2/0, (Aorta) Ao 117/69/90 After removing the current catheter a XB 3.5 GUIDE CATHETER FR 6 was advanced over a WIRE, EXCHA NGE 260CM 7:32:13 3MMJ 260CM. 7:32:54 Activated Clotting Time Drawn 7:34:24 31.5 mL AGGRASTAT BOLUS given in lab by Ross Mittal RN via Peripheral IV. Ordered by Antonio Wynn. 7:34:48 HR=82 bpm, HAFN=450/73 mmhg, SpO2=89.0 %, Resp=13 B/min, Pain=0, Arianna=10, Hale=2 7:35:05 A WIRE, ASAHI PROWATER 180CM 180CM was inserted via Fem Art (right). 0.15 mcg/kg/min AGGRASTAT DRIP given in lab by Ross Mittal RN via Peripheral IV. Pump/Drip [place] w = 11.3 ml/hr 7:37:03 using NaCl .9 with a concentration of 12.5 mg in 250 ml. Ordered by Antonio Wynn. 7:37:34 Interventional wire has crossed the lesion 7:37:56 ACT (Normal Range 90-180) = 269 A BALLOON, 2.5 X 15MM EUPHORA 15MM was inserted over WIRE, ASAHI PROWATER 180CM 180CM via the R adial 7:38:05 (right). A BALLOON, 2.5 X 15MM EUPHORA 15MM over a WIRE, ASAHI PROWATER 180CM 180CM in the LAD Mid was i nflated 7:38:42 using a 30 JUAN MANUEL INDEFLATOR at 8 juan manuel for 20 sec. 7:40:16 2 mg VERSED given in lab by Ross Mittal RN via Peripheral IV. Ordered by Antonio Wynn. 7:40:18 HR=94 bpm, CFTB=851/97 mmhg, SpO2=94.0 %, Resp=12 B/min, Pain=0, Arianna=10, Hale=2 A BALLOON, 2.5 X 15MM EUPHORA 15MM over a WIRE, ASAHI PROWATER 180CM 180CM in the LAD Mid was i nflated 7:40:22 using a 30 JUAN MANUEL INDEFLATOR at 10 juan manuel for 12 sec. 7:41:21 150 mcg NTG (IC) given in lab by Antonio Wynn via Intra-coronary. Ordered by Antonio Wynn. 7:42:18 Balloon Removed. A STENT, 2.75 18MM HUMERA 2.75 18MM was advanced through a XB 3.5 GUIDE CATHETER FR 6 over a WIRE , ASAHI 7:42:21 PROWATER 180CM 180CM. A STENT, 2.75 18MM HUMERA 2.75 18MM was deployed using a 30 JUAN MANUEL INDEFLATOR at 15 atmospheres for 30 seconds 7:43:30 in the LAD Mid. 7:44:54 HR=85 bpm, BJGW=577/81 mmhg, SpO2=94.0 %, Resp=8 B/min 7:45:11 Delivery device removed 7:45:13 100 mcg NTG (IC) given in lab by Antonio Wynn via Intra-coronary. Ordered by Antonio Wynn. 7:46:19 Wire removed 7:46:21 Catheter was removed 7:46:42 Case End (Physician broke scrub) Assessment: Final Case, HR=64 BPM, OJJI=864/81 mmhg, Chest Pain=1, Edema=None, Color=Normal, Sk in = Warm, Dry Right Pulses: Nav Ped=3, Femoral=3, Radial=3 7:48:35 Lower Right Extremities: Color=Normal Lower Left Extremities: Color=Normal Neurological: State=Alert, Ox3, CARDONA Respiration: Resp=15 B/min, SpO2=96 % 7:49:03 Catheter(s) removed without difficulty Radial Compression Device Used. 11 mLs of air placed in BAND, RADIAL COMPRESSION TR SHORT 24 24 CM. Affected 7:49:04 hand 94 % O2 saturation. 7:49:17 No case complications noted. 7:49:18 Cine recording checked. 7:49:19 Bedside Report will be given. 7:49:20 Implantable Device card placed in patient's chart. 7:49:23 A Left Heart Cath was performed. 7:49:49 HR=81 bpm, MWOF=328/81 mmhg, Resp=9 B/min 7:54:40 600 mg PLAVIX given in lab by Ross Mittal, RN via Oral. Ordered by Antonio Wynn. 7:54:46 HR=80 bpm, CQBI=830/75 mmhg, Resp=10 B/min 7:58:23 Patient moved to [facility] End Study - Contrast Media Used In Study Contrast Total Opened (mL) Total Used (mL) Total Wasted (mL) Omnipaque 135 135 0 End Study - Maximum Contrast Load Max Contrast Load (mL) 629.1 End Study - Radiation Exposure Fluoro Time Fluoro Dose (mGy) Cine Dose (uGym2) (minutes) 5.6 349 4 End Study - Sheaths Sheaths Pulled By Sheath Hold Time (min) Val Allen End Study - Patient Disposition Complications Transferred To Interventional Outcome No Telemetry Bed successful
[2018-09-30] MEDS ORDERED: Tirofiban Inj 12,500 MCG/250 ML PLAST..BAG IV.CONT SCH (08:00)
--- NOTE | 2018-09-30 08:05 | P.PNCA ---
Subjective Interval history: No further CP. No dyspnea, dizziness, palpitations. Medications and Allergies Active Medications: Active Medications Acetaminophen (Tylenol) 500 mg PO Q4H PRN PRN Reason: HEADACHE Hydrocodone Bitart/Acetaminophen (Concan 7.5/325) 1 tab PO Q4H PRN PRN Reason: PAIN SCALE 1 TO 7 Albuterol (Ventolin Hfa Inh) 2 puff INH Q4H PRN PRN Reason: SHORTNESS OF BREATH/WHEEZING Aspirin (Aspirin) 325 mg PO DAILY [facility] Last Admin: 09/29/18 08:25 Dose: 325 mg Atorvastatin Calcium (Lipitor) 40 mg PO HS [facility] Last Admin: 09/29/18 21:49 Dose: 40 mg Clopidogrel Bisulfate (Plavix) 75 mg PO DAILY [facility] Diphenhydramine HCl (Benadryl) 50 mg PO POINT OF SALE ASSOCIATE [facility] Stop: 10/03/18 16:59 Enalapril Maleate (Vasotec) 5 mg PO DAILY [facility] Fentanyl Citrate (Fentanyl Inj) 50 mcg IV.PUSH POINT OF SALE ASSOCIATE [facility] Stop: 10/03/18 16:59 Sodium Chloride (Ns Inj) 1,000 mls @ 100 mls/hr IV.CONT .Q10H [facility] Heparin Sodium/Dextrose (Heparin/D5w 25,000 U/250 Ml) 25,000 unit in 250 mls @ 0 mls/hr IV.CONT TITRATE PRN; Protocol PRN Reason: Per Protocol Last Admin: 09/29/18 18:41 Dose: 700 units/hr, 7 mls/hr Sodium Chloride (Ns Inj) 1,000 mls @ 100 mls/hr IV.CONT .Q10H [facility] Stop: 09/30/18 19:59 Tirofiban/Sodium Chloride (Aggrastat Inj) 12,500 mcg in 250 mls @ 0 mls/hr IV.CONT .Q0M [facility]; Protocol Stop: 10/01/18 01:00 Midazolam HCl (Versed Inj) 1 mg IV.PUSH POINT OF SALE ASSOCIATE [facility] Stop: 10/03/18 16:59 Miscellaneous Information (Misc Info For Pharmacy/Read Comments) 0 each OTHER STAT STA Stop: 09/30/18 07:59 Morphine Sulfate (Morphine Inj) 2 mg IV.PUSH Q4H PRN PRN Reason: PAIN SCALE 8 TO 10 Last Admin: 09/29/18 14:54 Dose: 2 mg Nitroglycerin (Nitrostat Sl) 0.4 mg SL Q5M PRN PRN Reason: CHEST PAIN Last Admin: 09/29/18 15:02 Dose: 0.4 mg Ondansetron HCl (Zofran Inj) 4 mg IV.PUSH Q6H PRN PRN Reason: NAUSEA Last Admin: 09/29/18 00:42 Dose: 4 mg Propranolol HCl (Inderal La) 120 mg PO DAILY [facility] Sodium Chloride (Ns Flush) 2 ml IV.FLUSH BID [facility] Last Admin: 09/29/18 21:49 Dose: 2 ml Sodium Chloride (Ns Flush) 2 ml IV.FLUSH PRN PRN PRN Reason: FLUSH AFTER USING IV ACCESS Sodium Chloride (Ns Flush) 2 ml IV.FLUSH BID [facility] Sodium Chloride (Ns Flush) 2 ml IV.FLUSH PRN PRN PRN Reason: FLUSH AFTER USING IV ACCESS Allergies Allergy/AdvReac Type Severity Reaction Status Date / Time erythromycin base Allergy Severe N/V Verified 09/28/18 18:46 Sulfa (Sulfonamide Allergy Unknown UNKNOWN Verified 09/28/18 18:46 Antibiotics) Home Medications Medication Instructions Recorded Confirmed Type acetaminophen 650 mg PO Q6H PRN 09/28/18 09/28/18 History alprazolam 0.5 mg PO DIRECTED PRN 09/28/18 09/28/18 History ergocalciferol (vitamin D2) 50,000 unit PO QWEEK 09/28/18 09/28/18 History [Vitamin D2] hydroxychloroquine 200 mg PO BID 09/28/18 09/28/18 History propranolol 120 mg PO DAILY 09/28/18 09/28/18 History Physical Exam Vital signs: Vital Signs 09/29/18 10:32 09/29/18 10:53 09/29/18 14:50 Temperature 96.5 F L Pulse Rate 57 L 74 Respiratory Rate 16 20 18 Blood Pressure 127/76 155/90 H Pulse Oximetry 96 09/29/18 15:00 09/29/18 15:01 09/29/18 15:02 Temperature 97.6 F Pulse Rate 74 Respiratory Rate 20 18 18 Blood Pressure 155/90 H Pulse Oximetry 93 L 09/29/18 15:06 09/29/18 15:07 09/29/18 20:00 Temperature 97.5 F L Pulse Rate 71 Respiratory Rate 18 18 16 Blood Pressure 115/81 128/83 Pulse Oximetry 98 09/30/18 00:00 09/30/18 04:00 Temperature 96.6 F L 96.7 F L Pulse Rate 64 73 Respiratory Rate 16 16 Blood Pressure 124/73 123/81 Pulse Oximetry 95 96 Intake & Output 09/29/18 09/30/18 09/30/18 18:59 06:59 18:59 Intake Total 120 / 120 200 / 200 Balance 120 / 120 200 / 200 Weight 62.9 kg Intake: Oral 120 / 120 200 / 200 Other: # Voids 8 2 - Constitutional no acute distress - Routine Neck Exam Absent: JVD - Routine Respiratory Exam Present: CTA bilaterally - Routine Cardiovascular Exam Present: RRR, S1, S2. Absent: murmur, gallop - Routine Abdominal Exam Present: soft, normoactive bowel sounds. Absent: tenderness, organomegaly - Routine Extremities Exam Absent: cyanosis, clubbing, edema Results 09/29/18 18:26 Cardiac Enzymes 09/28/18 09/28/18 09/29/18 Range/Units 19:20 23:20 04:32 Troponin I Less than 0.02 L Less than 0.02 L Less than 0.02 L (0.02-0.05) ng/mL Coagulation 09/29/18 09/30/18 Range/Units 18:26 00:45 APTT 29.9 58.8 H D (23.4-31.7) sec CBC 09/29/18 Range/Units 18:26 WBC 10.1 (4.0-11.0) th/mm3 RBC 4.88 (4.00-5.30) mil/mm3 Hgb 14.9 (11.6-15.3) gm/dL Hct 43.9 (35.0-46.0) % Plt Count 217 (150-450) th/mm3 Intake and Output 09/29/18 09/30/18 09/30/18 22:59 06:59 14:59 Intake Total 120 / 120 200 / 200 Balance 120 / 120 200 / 200 Intake: Oral 120 / 120 200 / 200 Other: # Voids 8 2 Weight 62.9 kg - Imaging and Cardiology Imaging: Impressions Myocardial Perfusion Scan Nuc Med 09/29/18 00:00 CONCLUSION: 1. Large partially reversible stress-induced perfusion abnormality with associated significant hypokinesia. 2. Over calculated ejection fraction which appears to be less than 50%. Assessment and Plan - Assessment (1) Coronary artery disease Code(s): I25.10 - Atherosclerotic heart disease of [place] coronary artery without angina pectoris Status: Chronic Plan: Stable overnight. High grade mid LAD disease stented today. EF 60%. 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 Check lipid profile in am. - Plan Code Status: full Discussed Condition With: patient (1) Coronary artery disease Qualifiers: Coronary Disease-Associated Artery/Lesion type: [place] artery [place] vs. transplanted heart: [place] heart Associated angina: with unstable angina Qualified Code(s): I25.110 - Atherosclerotic heart disease of [place] coronary artery with unstable angina pectoris
--- NOTE | 2018-09-30 08:14 | MA ---
cc: Antonio Wynn MD DATE: 09/30/2018 PROCEDURE: Left heart catheterization, selective coronary angiography, left ventriculography, angioplasty and stent of the mid left anterior descending. PROCEDURE NOTES: The patient was brought to the cardiac catheterization laboratory in a fasting state after having signed informed consent. The right radial region was prepped and draped as per policy and anesthetized with 1% lidocaine. Arterial access was obtained via the right radial artery and a 6-Honduran sheath placed. Coronary arteriography and left ventriculography was done using a Winston 4.5 catheter. Percutaneous coronary intervention was done as described below. There were no apparent immediate complications. A radial artery compression band was applied to her right wrist at the end of the case to achieve good hemostasis. HEMODYNAMIC DATA: Left ventricle 121 with an end-diastolic pressure of 15. Aorta 117/69 with a mean of 90. There was no significant transvalvular aortic gradient on pullback of the pigtail catheter. CORONARY ARTERIOGRAPHY: The left main is normal. The left anterior descending gives rise to multiple small diagonals which are free of disease. At the ostium of the LAD, there is up to 30% smooth stenosis. In the mid LAD, there is hazy somewhat ulcerated 95% stenosis. The distal LAD has minimal luminal irregularities. The left circumflex is a large dominant vessel with 30% ostial stenosis. There are minimal luminal irregularities in the mid left circumflex and in the obtuse marginal, which is a fairly large vessel. The very distal left circumflex has irregular up to 20% disease. The right coronary artery is a small caliber nondominant vessel with diffuse mid disease, which is somewhat difficult to quantify, possibly up to 25% severity. LEFT VENTRICULOGRAPHY: Contrast injection of the left ventricle reveals no definite segmental wall motion abnormalities. Ejection fraction is estimated at 60%. PERCUTANEOUS CORONARY INTERVENTION DESCRIPTION: Adequate heparin was given to achieve an ACT greater than 250 seconds. Aggrastat was given as per protocol. Using a 6-Honduran XB 3.5 guiding catheter, the ostium of the left main was reengaged. Using a 0.014 [place] guidewire, the disease in the mid LAD was crossed without difficulty and the tip of the wire positioned distally. Predilation was done using a 2.5 mm Euphora balloon catheter. Stenting was done using a 2.75 by 18 mm Resolute Shalom stent, which was deployed at 16 atmospheres for 30 seconds. Final angiography shows overall good results with reduction of the stenosis to roughly 0% residual with no definite evidence for dissection or distal embolization. The patient tolerated the procedure well. She did develop chest pain with balloon inflations relieved by balloon deflation as well as multiple administrations of intracoronary nitroglycerin. CONCLUSIONS: 1. Severe single-vessel coronary artery disease, now status post angioplasty and stent of the mid left anterior descending. 2. Left dominant system. 3. Normal left ventricular function with estimated ejection fraction of 60%. MD SABRINA Collins/nathen , 07:53 AM , 08:02 AM MTDD
[2018-09-30] MEDS: Acetaminophen 500 MG Tablet PO PRN ×2 (08:58→18:32)
[2018-09-30] MEDS: Aspirin 325 MG Tablet PO SCH (08:59)
[2018-09-30] MEDS: Sod Chloride 0.9% Inj 1,000 ML IV.CONT SCH (09:23)
--- NOTE | 2018-09-30 12:52 | ECHRPT ---
Indication: CHEST PAIN CONCLUSIONS Normal left ventricular size. Wall thickness is normal. The left ventricular systolic function is normal with an estimated ejection fraction in the range of 55%. Mitral annular calcification is present. Trace mitral valve regurgitation. The estimated pulmonary arterial pressure is 27 mmHg. BP: / HR: Rhythm: MEASUREMENTS (Male / Female) Normal Values Technical Quality: 2D ECHO LV Diastolic Diameter PLAX 4.1 cm 4.2 - 5.9 / 3.9 - 5.3 cm LV Systolic Diameter PLAX 3.0 cm IVS Diastolic Thickness 0.8 cm 0.6 - 1.0 / 0.6 - 0.9 cm LVPW Diastolic Thickness 0.6 cm 0.6 - 1.0 / 0.6 - 0.9 cm LV Relative Wall Thickness 0.3 RV Internal Dim ED PLAX 2.1 cm LA Systolic Diameter LX 2.4 cm 3.0 - 4.0 / 2.7 - 3.8 cm DOPPLER Mitral E Point Velocity 63.2 cm/s Mitral A Point Velocity 75.0 cm/s Mitral E to A Ratio 0.8 TR Peak Velocity 205.0 cm/s TR Peak Gradient 16.8 mmHg Right Atrial Pressure 10.0 mmHg Pulmonary Artery Systolic Pressu 26.8 mmHg Right Ventricular Systolic Press 26.8 mmHg FINDINGS LEFT VENTRICLE Normal left ventricular size. Wall thickness is normal. The left ventricular systolic function is normal with an estimated ejection fraction in the range of 55%. RIGHT VENTRICLE Normal right ventricular size and systolic function. LEFT ATRIUM The left atrial size is normal. RIGHT ATRIUM The right atrial size is normal. ATRIAL SEPTUM Normal atrial septal thickness without atrial level shunting by limited color doppler interrogation. AORTA The aortic root and proximal ascending aorta are normal in size on limited imaging. MITRAL VALVE Mitral annular calcification is present. Trace mitral valve regurgitation. AORTIC VALVE Trileaflet aortic valve. No aortic valve stenosis or regurgitation. TRICUSPID VALVE The estimated pulmonary arterial pressure is 27 mmHg. PULMONARY VALVE No pulmonary valve regurgitation or stenosis. VESSELS The inferior vena cava is normal in size. PERICARDIUM No pericardial effusion. Nikhil Hand MD, FACC (Electronically Signed) Final Date:30 September 2018 12:51
[2018-09-30] MEDS: Propranolol LA 60 MG Capsule PO SCH (13:12)
--- NOTE | 2018-09-30 15:32 | P.PNIM ---
Subjective Interval history: no chest pain or shortness of breath. Physical Exam Vital signs: Last Vital Signs Temp 97.8 F 09/30/18 12:00 Pulse 76 09/30/18 13:43 Resp 20 09/30/18 13:43 BP 108/62 09/30/18 13:43 Pulse Ox 97 09/30/18 13:43 Intake & Output 09/28/18 09/29/18 09/30/18 10/01/18 06:59 06:59 06:59 06:59 Intake Total 0 / 0 320 / 320 50 / 50 Balance 0 / 0 320 / 320 50 / 50 Weight 61.3 kg 62.9 kg Narrative: GENERAL: middle aged woman in no acute distress. HEENT:not pale,anicteric NECK:no JVD CARDIOVASCULAR: Regular rate and rhythm without murmurs, gallops, or rubs. RESPIRATORY: Clear to auscultation. Breath sounds equal bilaterally. No wheezes , rales, or rhonchi. GASTROINTESTINAL: Abdomen soft, non-tender, nondistended. Normal active bowel sounds MUSCULOSKELETAL: Extremities without clubbing, cyanosis, or edema. NEURO: Alert & Oriented x4 to person, place, time, situation. Moves all ext x4 Results Labs CBC & Chem 7: 09/29/18 18:26 Assessment and Plan (1) Coronary artery disease: Code(s): I25.10 - Atherosclerotic heart disease of [place] coronary artery without angina pectoris Status: Chronic Plan 1.CAD Angina/Chest pain-resolved- stress test was positive, cardiac cath done 09/30 showed high grade mid LAD stenosis, now s/p stent. continue on ASA,Plavix,Statin/Enalapril/Propranolol. On Tirofiban drip post cath. Stable chronic conditions: #H/o COPD-not in exacerbation #lupus, Raynaud's. Continue medication. Anticipate discharge on 10/01/18 if remains clinically stable. Progress Note: Quality VTE Deep Vein Thrombosis/Pulmonary Embolism Present on Admission: No _ (1) Coronary artery disease Qualifiers: Coronary Disease-Associated Artery/Lesion type: [place] artery [place] vs. transplanted heart: [place] heart Associated angina: with unstable angina Qualified Code(s): I25.110 - Atherosclerotic heart disease of [place] coronary artery with unstable angina pectoris
[2018-10-01] MEDS: Sod Chloride 0.9% Inj 1,000 ML IV.CONT SCH (01:14)
[2018-10-01 05:09] LABS: Baso % (Auto) 0.4 % (0.0-2.0); Eos # (Auto) 0.2 th/mm3 (0.0-0.4); Eos % (Auto) 3.6 % (0.0-4.0); Hematocrit 36.3 % (35.0-46.0); Hemoglobin 12.7 gm/dL (11.6-15.3); Lymph # (Auto) 1.7 th/mm3 (1.0-4.8); Lymph % (Auto) 34.1 % (9.0-44.0); Mean Corpuscular Hemoglobin 31.6 pg (27.0-34.0); Mean Corpuscular Volume 90.3 fL (80.0-100.0); Mean Platelet Volume 7.4 fL (7.0-11.0); Mono # (Auto) 0.4 th/mm3 (0.0-0.9); Mono % (Auto) 7.9 % (0.0-8.0); Neut # (Auto) 2.7 th/mm3 (1.8-7.7); Platelet Count 160 th/mm3 (150-450); Red Blood Count 4.02 mil/mm3 (4.00-5.30); Red Cell Distribution Width 12.7 % (11.6-17.2)
[2018-10-01 05:36] LABS: Anion Gap 6 meq/L (5-15); Blood Urea Nitrogen 10 mg/dL (7-18); Calcium 7.8 mg/dL (8.5-10.1); Carbon Dioxide 27.1 meq/L (21.0-32.0); Chloride 108 meq/L (98-107); Cholesterol 162 mg/dL (120-200); Glomerular Filtration Rate Greater Than 89 mL/min (>89); Glucose,Random 85 mg/dL (74-106); Potassium 3.8 meq/L (3.5-5.1); Sodium 141 meq/L (136-145); Triglycerides 118 mg/dL (42-150)
[2018-10-01 05:38] LABS: Chol/HDL Ratio 3.49 Ratio; HDL Cholesterol 46.3 mg/dL (40.0-60.0); LDL Cholesterol,Calculated 92 mg/dL (0-99)
[2018-10-01 05:43] LABS: Creatine Kinase 32 U/L (26-192)
[2018-10-01] MEDS: Aspirin 325 MG Tablet PO SCH (10:00)
[2018-10-01] MEDS: Propranolol LA 60 MG Capsule PO SCH (10:01)
--- NOTE | 2018-10-01 11:07 | P.DS ---
DS: Providers Date of admission: 09/28/18 19:50 Primary care physician: No Primary Care Physician Consults: 09/29/18 15:14 Consult to Cardiology Routine Consulting Provider: Antonio Wynn Does the patient have a Internet Specialist who follows them?: Yes Preferred Screen Operator:: Gas Leak Inspector Helper Physician Reason for Consultation: chest pain. positive stress test. Notified:: Service Spoke with:: BRITTA Date Notified:: 09/29/18 Time Notified:: 15:21 Ordering Provider: RUTHIE Brief History from admission: 58-year-old female with a history of lupus, fibromyalgia, hypertension, COPD, chronic smoking who presents with a 3-day history of intermittent sharp chest pain radiating to bilateral jaws, left arm. She notes that this pain usually wakes her from sleep, however has experiences during the day as well. She denies any fevers, chills. She also reports sinus congestion over the past few days. She is from [place] and is visiting family. He says her , who is still up in [place], was diagnosed with metastatic lung cancer the day before [place]. Patient says she has been very upset by this, has been grinding her teeth. She is not sure if her chest pain is stress related or not. Patient is currently chest pain-free. She reports that the pain is not worsened with deep breathing. Of note, she did visit the ER several days ago, was admitted to chest pain center with 2- troponins and discharged AMA. DS: Diagnosis Discharge Diagnosis (1) Coronary artery disease: Status: Chronic DS: Summary Patient had a stress test on admission which was positive and hence she was admitted to [facility]. She was started on heparin drip, ASA,Plavix,statin,Enalapril. Her Propranolol was continued.Cardiology consulted and cardiac cath done 09/30 showed high grade mid LAD stenosis, for which a stent was placed. She was observed for another 24hrs after stent, and she remained stable without chest pain or any adverse events. Patient has been cleared for discharge by the mri specialist. She has been advised to continue on DAPT and will need to follow up with her mri specialist in [place]. Time Spent with Patient Total time spent providing and/or coordinating discharge services:>30 minutes Quality: VTE Deep Vein Thrombosis/Pulmonary Embolism Present on Admission: No Exam Narrative Exam Narrative: GENERAL: middle aged lady, not in distress. HEENT:not pale,anicteric CARDIOVASCULAR: Regular rate and rhythm without murmurs, gallops, or rubs. RESPIRATORY: Clear to auscultation. Breath sounds equal bilaterally. No wheezes , rales, or rhonchi. GASTROINTESTINAL: Abdomen soft, non-tender, nondistended. Normal active bowel sounds MUSCULOSKELETAL: Extremities without clubbing, cyanosis, or edema. NEURO: Alert & Oriented x4 to person, place, time, situation. Moves all ext x4 Results Labs on day of discharge: Labs from last 24 hours 10/01/18 10/01/18 04:49 04:49 WBC 5.0 RBC 4.02 Hgb 12.7 D Hct 36.3 MCV 90.3 MCH 31.6 MCHC 35.0 RDW 12.7 Plt Count 160 MPV 7.4 Neut % (Auto) 54.0 Lymph % (Auto) 34.1 [place] % (Auto) 7.9 Eos % (Auto) 3.6 Baso % (Auto) 0.4 Neut # (Auto) 2.7 Lymph # (Auto) 1.7 [place] # (Auto) 0.4 Eos # (Auto) 0.2 Baso # (Auto) 0.0 WBC Differential . Differential Comment Auto diff final Sodium 141 Potassium 3.8 Chloride 108 H Carbon Dioxide 27.1 Anion Gap 6 BUN 10 Creatinine 0.52 Estimated GFR Greater than 89 Random Glucose 85 Calcium 7.8 L Total Creatine Kinase 32 Triglycerides 118 Cholesterol 162 LDL Cholesterol, Calc 92 HDL Cholesterol 46.3 Cholesterol/HDL Ratio 3.49 Impressions ITS Impressions Myocardial Perfusion Scan Nuc Med 09/29/18 00:00 CONCLUSION: 1. Large partially reversible stress-induced perfusion abnormality with associated significant hypokinesia. 2. Over calculated ejection fraction which appears to be less than 50%. Discharge Plan Discharge Disposition Patient Disposition: Discharge Home Discharge Condition Condition: Stable Discharge Order Discharge Orders: Discharge Order (Routine); Ordered 10/01/18 Ordered By: Concetta Taylor Discharge Details Anticipated Discharge Date: 10/01/18 Physicians Team Primary Care Provider: Primary Care Yanick,Amanda Attending Provider: Concetta Taylor Other Providers: Antonio Wynn Rxs /Orders / Referrals /Forms Prescriptions: New clopidogrel [Plavix] 75 mg Tablet 75 mg PO DAILY Qty: 30 RF: 11 atorvastatin 40 mg Tablet 40 mg PO HS Qty: 30 RF: 11 nitroglycerin [Nitrostat] 0.4 mg Tablet, Sublingual 0.4 mg Sublingual Q5M PRN (Reason: Chest Pain) Qty: 30 RF: 0 aspirin 325 mg Tablet 325 mg PO DAILY Qty: 30 RF: 11 enalapril maleate 5 mg Tablet 5 mg PO DAILY Qty: 30 RF: 11 Continue acetaminophen 325 mg Tablet 650 mg PO Q6H PRN (Reason: Pain) RF: 0 ergocalciferol (vitamin D2) [Vitamin D2] 50,000 unit Capsule 50,000 unit PO QWEEK RF: 0 hydroxychloroquine 200 mg Tablet 200 mg PO BID RF: 0 propranolol 120 mg Capsule,Extended Release 24hr 120 mg PO DAILY RF: 0 albuterol sulfate 90 mcg/actuation HFA aerosol inhaler 2 inh INHALATION Q6-8H PRN (Reason: shortness of breath or wheezing) Qty: 18 RF: 0 alprazolam 0.5 mg Tablet 0.5 mg PO DIRECTED PRN (Reason: Anxiety) RF: 0 Discontinued prednisone 20 mg tablet 20 mg PO BID 5 Days Qty: 10 RF: 0 amoxicillin-pot clavulanate [Augmentin] 875-125 mg tablet 1 tab PO Q12H Qty: 14 RF: 0 Referrals: Primary Care Amanda Herndon [Primary Care Provider] - See Instructions Discharge Instructions Patient Printed Instructions: Enalapril (By mouth), Clopidogrel (By mouth), Chest Pain (ED), Heart Catheterization (DC), Heart Catheterization (GEN) Discharge Interventions Interventions: Discharge Planning - Case Management Last Done: 09/30/18 12:51 Status ED Status: Left Department
--- NOTE | 2018-10-01 12:46 | P.PNCA ---
Subjective Interval history: No events overnight No chest pain Medications and Allergies Allergies Allergy/AdvReac Type Severity Reaction Status Date / Time erythromycin base Allergy Severe N/V Verified 09/28/18 18:46 Sulfa (Sulfonamide Allergy Unknown UNKNOWN Verified 09/28/18 18:46 Antibiotics) Home Medications Medication Instructions Recorded Confirmed Type acetaminophen 650 mg PO Q6H PRN 09/28/18 09/28/18 History alprazolam 0.5 mg PO DIRECTED PRN 09/28/18 09/28/18 History ergocalciferol (vitamin D2) 50,000 unit PO QWEEK 09/28/18 09/28/18 History [Vitamin D2] hydroxychloroquine 200 mg PO BID 09/28/18 09/28/18 History propranolol 120 mg PO DAILY 09/28/18 09/28/18 History Physical Exam Vital signs: Vital Signs 09/30/18 13:43 09/30/18 14:43 09/30/18 16:00 Temperature 97.9 F Pulse Rate 76 81 69 Respiratory Rate 20 18 20 Blood Pressure 108/62 91/66 L 97/66 L Pulse Oximetry 97 97 98 09/30/18 17:39 09/30/18 19:42 09/30/18 19:56 Temperature Pulse Rate 80 62 67 Respiratory Rate 22 16 Blood Pressure 180/88 H 92/60 L Pulse Oximetry 97 97 09/30/18 20:00 09/30/18 21:00 09/30/18 22:00 Temperature Pulse Rate 56 L 56 L 56 L Respiratory Rate Blood Pressure Pulse Oximetry 09/30/18 23:03 10/01/18 00:00 10/01/18 01:00 Temperature 98.0 F Pulse Rate 57 L 57 L 57 L Respiratory Rate 16 Blood Pressure 84/48 L Pulse Oximetry 99 10/01/18 02:00 10/01/18 03:00 10/01/18 04:00 Temperature 97.9 F Pulse Rate 72 50 L 74 Respiratory Rate 16 Blood Pressure 101/57 L Pulse Oximetry 98 10/01/18 05:00 10/01/18 06:00 Temperature Pulse Rate 72 61 Respiratory Rate Blood Pressure Pulse Oximetry Intake & Output 09/30/18 10/01/18 10/01/18 18:59 06:59 18:59 Intake Total 690 / 690 1714.5 / 1714.5 Balance 690 / 690 1714.5 / 1714.5 Weight 62.8 kg Intake: IV 50 / 50 1234.5 / 1234.5 Heparin/D5W 25,000 U/250 mL 25, 50 / 50 000 unit In 250 ml @ Per Protocol IV.CONT TITRATE PRN Rx #:[id number] NS Inj 1,000 ML @ 100 mls/hr IV 1000 / 1000 .CONT .Q10H [facility] Rx#:[id number] Oral 640 / 640 480 / 480 Other: # Voids 4 2 Date of Last Bowel Movement 09/26/18 Narrative: GENERAL: middle aged woman in no acute distress. HEENT:not pale,anicteric NECK:no JVD CARDIOVASCULAR: Regular rate and rhythm without murmurs, gallops, or rubs. RESPIRATORY: Clear to auscultation. Breath sounds equal bilaterally. No wheezes , rales, or rhonchi. GASTROINTESTINAL: Abdomen soft, non-tender, nondistended. Normal active bowel sounds MUSCULOSKELETAL: Extremities without clubbing, cyanosis, or edema. Right radial without hematoma, neurovascularly intact distally NEURO: Alert & Oriented x4 to person, place, time, situation. Moves all ext x4 Results 10/01/18 04:49 10/01/18 04:49 Coagulation 09/29/18 09/30/18 09/30/18 Range/Units 18:26 00:45 08:57 APTT 29.9 58.8 H D 87.4 H D (23.4-31.7) sec Lipids 10/01/18 Range/Units 04:49 Triglycerides 118 (42-150) mg/dL Cholesterol 162 (120-200) mg/dL HDL Cholesterol 46.3 (40.0-60.0) mg/dL Cholesterol/HDL Ratio 3.49 Ratio CBC 09/29/18 10/01/18 Range/Units 18:26 04:49 WBC 10.1 5.0 (4.0-11.0) th/mm3 RBC 4.88 4.02 (4.00-5.30) mil/mm3 Hgb 14.9 12.7 D (11.6-15.3) gm/dL Hct 43.9 36.3 (35.0-46.0) % Plt Count 217 160 (150-450) th/mm3 Neut # (Auto) 2.7 (1.8-7.7) th/mm3 Lymph # (Auto) 1.7 (1.0-4.8) th/mm3 [place] # (Auto) 0.4 (0.0-0.9) th/mm3 Eos # (Auto) 0.2 (0.0-0.4) th/mm3 Baso # (Auto) 0.0 (0.0-0.2) th/mm3 Comprehensive Metabolic Panel 10/01/18 Range/Units 04:49 Sodium 141 (136-145) meq/L Potassium 3.8 (3.5-5.1) meq/L Chloride 108 H (98-107) meq/L Carbon Dioxide 27.1 (21.0-32.0) meq/L BUN 10 (7-18) mg/dL Creatinine 0.52 (0.50-1.00) mg/dL Calcium 7.8 L (8.5-10.1) mg/dL Intake and Output 09/30/18 10/01/18 10/01/18 22:59 06:59 14:59 Intake Total 640 / 640 1714.5 / 1714.5 Balance 640 / 640 1714.5 / 1714.5 Intake: IV 1234.5 / 1234.5 NS Inj 1,000 ML @ 100 mls/hr IV 1000 / 1000 .CONT .Q10H [place] Rx#:[id number] Oral 640 / 640 480 / 480 Other: # Voids 4 2 Date of Last Bowel Movement 09/26/18 Weight 62.8 kg - Imaging and Cardiology Imaging: Impressions Myocardial Perfusion Scan Nuc Med 09/29/18 00:00 CONCLUSION: 1. Large partially reversible stress-induced perfusion abnormality with associated significant hypokinesia. 2. Over calculated ejection fraction which appears to be less than 50%. Assessment and Plan - Assessment (1) Coronary artery disease Code(s): I25.10 - Atherosclerotic heart disease of [place] coronary artery without angina pectoris Status: Chronic Plan: Stable overnight. High grade mid LAD disease stented. EF 60%. 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 Check lipid profile in am. - Plan 1) Abnormal stress test/unstable angina s/p ISSAC to LAD ASA/Plavix/Propranolol/Enalapril Lipitor 2) EF 55% 3) Cardiovascularly stable for discharge Ok to fly home Sunday Follow up with Cardiology back in [place] (1) Coronary artery disease Qualifiers: Coronary Disease-Associated Artery/Lesion type: [place] artery [place] vs. transplanted heart: [place] heart Associated angina: with unstable angina Qualified Code(s): I25.110 - Atherosclerotic heart disease of [place] coronary artery with unstable angina pectoris
== END 2018-10-01 12:22 | disposition home or self-care (01) ==
LOC: PHEDA 18:21 → PHED 18:21 → PHEDA 22:19 → PH3 22:23 → HCIS 09-30 06:17
PROVIDERS: ADMIT Hospitalist; ATTEND Hospitalist
CPT/HCPCS: 78452; 80048; 80061; 80307; 82550; 84484; 85002; 85025; 85027; 85730; 90765; 90766; 90775; 92928; 93005; 93017; 93306; 93458; 96365; 96366; 96372; 96375; 96376; 99152; 99153; 99285; A9502; C1725; C1769; C1874; C1887; C1893; G0378; J1644; J2250; J2270; J2405; J2785; J3010; J3246; J7030; Q9967